=== PATIENT | male | born 1965 | race Caucasian/White ===

== ENCOUNTER 2016-08-07 16:14 | Emergency (ER) | payer MEDICAID ==
[~2016-08-07] VITALS: Ht 167.6 cm; Wt 68.0 kg
[~2016-08-07 16:14] MED LIST: ACET-2178 PO; BACL-141 PO; CALC500T6 PO; CLON1TAB PO; CRAN3875; DOCU-138 PO; GABA-290 PO; GEMF600T; HYDR-519 PO; LACT10SO32 PO; LORA-250 PO; MAGN800O PO; MULT-25 PO; SENN-27 PO; SIME80TA5 PO; TEMA15CA PO
[2016-08-07] MEDS ORDERED: SODIUM CHLORIDE 0.9% 1,000 ML IV ONE (17:17)
[2016-08-07] MEDS ORDERED: ONDANSETRON HCL 4MG/2ML VIAL IV STA (17:17)
[2016-08-07] MEDS ORDERED: MORPHINE SULFATE 4 MG/ML CPJ (NOT FOR IM USE) IV STA (17:17)
[2016-08-07 17:57] LABS: BASOPHILS % 0.4 % (0.0-2.0); EOSINOPHILS % 5.1 % (0.0-5.0); HEMATOCRIT. 47.7 % (42.0-52.0); HEMOGLOBIN. 16.4 g/dL (14.0-18.0); LYMPHOCYTES % 21.4 % (20.0-50.0); MEAN CORPUSCULAR HGB CONC 34.4 g/dL (31.0-37.0); MEAN CORPUSCULAR VOLUME 90.1 fL (80.0-94.0); MEAN PLATELET VOLUME 7.9 fl (7.4-10.4); MONOCYTES % 6.5 % (2.0-8.0); NEUTROPHILS % 66.6 % (40.0-76.0); PLATELET 281 x1000/uL (130-400); RED CELL DISTRIBUTION WIDTH 13.7 % (11.6-14.6); WHITE BLOOD COUNT 9.6 x1000/uL (4.5-11.0)
[2016-08-07] MEDS ORDERED: LEVOFLOXACIN 500MG TABLET PO ONE (18:00)
[2016-08-07 18:02] LABS: PARTIAL THROMBOPLASTIN TIME 28.5 sec (24.0-34.0); PROTHROMBIN TIME 10.2 sec
[2016-08-07 18:11] LABS: ALANINE AMINOTRANSFERASE 28 IU/L (13-61); ANION GAP 14; CALCIUM 8.8 mg/dL (8.5-10.1); CARBON DIOXIDE 27 mEq/L (21-32); CHLORIDE 98 mEq/L (98-107); INDEX HEMOLYSI 1 (1-3); INDEX ICTERIC 1 (1-4); INDEX LIPEMIC 1 (1-3); LIPASE 197 IU/L (73-393); UREA NITROGEN BLOOD 13 mg/dL (7-21); eGFR > 60 mL/min (>60)
[2016-08-07 19:31] LABS: CLARITY URINE CLOUDY (CLEAR); COLOR URINE YELLOW (YELLOW); GLUCOSE URINE NEGATIVE (NEGATIVE); KETONES URINE NEGATIVE (NEGATIVE); LEUKOCYTE ESTERASE URINE 3+ (NEGATIVE); NITRITE URINE POSITIVE (NEGATIVE); OCCULT BLOOD URINE TRACE (NEGATIVE); PROTEIN URINE NEGATIVE (NEGATIVE); SPECIFIC GRAVITY URINE 1.007 (1.005-1.030)
[2016-08-07 19:47] LABS: BACTERIA URINE 2+; RBC URINE 0-2 /hpf (0-2); SQUAMOUS EPITHELIAL CELL URINE FEW /lpf (RARE/1+); WBC URINE 25-50 /hpf (0-2)
[2016-08-07] MEDS ORDERED: HYDROCODONE/ACETAMINOPHEN 5/325MG TABLET PO ONE (22:45)
[2016-08-08 00:28] VITALS: BP 136/85
== END 2016-08-08 00:50 | disposition home or self-care (01) ==
LOC: ER 16:15
DX: N39.0 Urinary tract infection, site not specified (principal); E87.1 Hypo-osmolality and hyponatremia; R10.9 Unspecified abdominal pain; I10 Essential (primary) hypertension; K08.9 Disorder of teeth and supporting structures, unspecified; G82.20 Paraplegia, unspecified; F11.10 Opioid abuse, uncomplicated; Z88.0 Allergy status to penicillin; Z88.8 Allergy status to other drugs, medicaments and biological substances; F17.210 Nicotine dependence, cigarettes, uncomplicated
CPT/HCPCS: 36415; 51702; 74000; 80053; 81001; 83690; 85025; 85610; 85730; 87040; 87077; 87086; 87186; 96361; 96374; 96375; 99285; J2270; J2405; J7030; Z7610

== ENCOUNTER 2017-04-25 17:24 | Emergency (ER) | payer MEDICAID ==
[~2017-04-25] VITALS: Ht 167.6 cm; Wt 66.0 kg
[2017-04-26 03:08] LABS: BASOPHILS % 1.2 % (0.0-2.0); EOSINOPHILS % 10.4 % (0.0-5.0); HEMATOCRIT. 43.2 % (42.0-52.0); HEMOGLOBIN. 14.9 g/dL (14.0-18.0); LYMPHOCYTES % 41.5 % (20.0-50.0); MEAN CORPUSCULAR HEMOGLOBIN 31.2 pg (28.0-32.0); MEAN CORPUSCULAR VOLUME 90.7 fL (80.0-94.0); MEAN PLATELET VOLUME 7.8 fl (7.4-10.4); MONOCYTES % 10.5 % (2.0-8.0); NEUTROPHILS % 36.4 % (40.0-76.0); PLATELET 214 x1000/uL (130-400); RED BLOOD CELL COUNT 4.77 mill/uL (4.7-6.1); RED CELL DISTRIBUTION WIDTH 13.6 % (11.6-14.6)
[2017-04-26 03:20] LABS: CARBON DIOXIDE 26 mEq/L (21-32); CHLORIDE 105 mEq/L (98-107); ETHANOL BLOOD < 10 mg/dL
[2017-04-26 03:26] LABS: CLARITY URINE CLEAR (CLEAR); COLOR URINE YELLOW (YELLOW); KETONES URINE NEGATIVE (NEGATIVE); LEUKOCYTE ESTERASE URINE 2+ (NEGATIVE); NITRITE URINE NEGATIVE (NEGATIVE); OCCULT BLOOD URINE TRACE (NEGATIVE); PROTEIN URINE TRACE (NEGATIVE); SPECIFIC GRAVITY URINE 1.023 (1.005-1.030)
[2017-04-26 04:13] LABS: *AMPHETAMINES SCREEN URINE PRESUMTIVE POSITIVE (NEGATIVE); *BARBITURATES SCREEN URINE NEGATIVE (NEGATIVE); *BENZODIAZEPINES SCREEN URINE NEGATIVE (NEGATIVE); *COCAINE SCREEN URINE NEGATIVE (NEGATIVE); CANNABINOID URINE SCREEN NEGATIVE (NEGATIVE); METHADONE URINE SCREEN NEGATIVE (NEGATIVE); OPIATES URINE SCREEN PRESUMTIVE POSITIVE (NEGATIVE); PHENCYCLIDINE URINE SCREEN NEGATIVE (NEGATIVE)
[2017-04-27] MEDS ORDERED: SULFAMETHOXAZOLE/TRIMETHOPRIM 400/80MG TAB PO ONE (05:45)
[2017-04-27] MEDS: SULFAMETHOXAZOLE/TRIMETHOPRIM 800/160MG TABLET PO ONE (06:55)
[2017-04-27] MEDS: ACETAMINOPHEN WITH CODEINE 300/30MG TABLET PO ONE (06:55)
[2017-04-27 12:25] VITALS: BP 106/62
== END 2017-04-27 12:50 | disposition home or self-care (01) ==
LOC: ER 17:24
DX: J06.9 Acute upper respiratory infection, unspecified (principal); N39.0 Urinary tract infection, site not specified; F15.10 Other stimulant abuse, uncomplicated; F11.90 Opioid use, unspecified, uncomplicated; K21.9 Gastro-esophageal reflux disease without esophagitis; I10 Essential (primary) hypertension; Z59.0 Homelessness; Z88.0 Allergy status to penicillin; Z88.1 Allergy status to other antibiotic agents
CPT/HCPCS: 36415; 71045; 80053; 80305; 80307; 80329; 81001; 85025; 99285; G0482

== ENCOUNTER 2017-05-11 10:30 | Emergency (ER) | payer MEDICAID ==
[~2017-05-11] VITALS: Ht 172.7 cm; Wt 81.0 kg
[2017-05-11] MEDS ORDERED: BACITRACIN ZINC OINT UDPKT TOP ONE (11:15)
[2017-05-11] MEDS ORDERED: KETOROLAC 30MG/ML VIAL IM ONE (11:15)
[2017-05-11 16:45] VITALS: BP 99/75
== END 2017-05-11 17:00 | disposition home or self-care (01) ==
LOC: ER 10:43
DX: T83.031A Leakage of indwelling urethral catheter, initial encounter (principal); L89.319 Pressure ulcer of right buttock, unspecified stage; Z88.0 Allergy status to penicillin; Z88.1 Allergy status to other antibiotic agents
CPT/HCPCS: 51702; 96372; 99284; J1885

== ENCOUNTER 2017-05-12 05:25 | Emergency (ER) | payer MEDICAID ==
[~2017-05-12] VITALS: Ht 167.6 cm; Wt 59.0 kg
[2017-05-12] MEDS ORDERED: MAGNESIUM/ALUMINUM HYDROXIDE/SIMETHICONE 30ML UDC PO ONE (06:45)
[2017-05-12] MEDS ORDERED: HYDROCODONE/ACETAMINOPHEN 5/325MG TABLET PO PRN (06:45)
[2017-05-12 12:00] VITALS: BP 125/74
== END 2017-05-12 13:27 | disposition home or self-care (01) ==
LOC: ER 05:25
DX: N39.0 Urinary tract infection, site not specified (principal); G82.20 Paraplegia, unspecified; F41.9 Anxiety disorder, unspecified; F17.200 Nicotine dependence, unspecified, uncomplicated; Z88.0 Allergy status to penicillin
CPT/HCPCS: 99283; Z7610

== ENCOUNTER 2017-07-13 19:36 | Emergency (ER) | payer MEDICAID ==
[~2017-07-13] VITALS: Ht 167.6 cm; Wt 69.0 kg
[2017-07-13 23:18] LABS: BASOPHILS % 0.6 % (0.0-2.0); HEMATOCRIT. 50.8 % (42.0-52.0); HEMOGLOBIN. 17.8 g/dL (14.0-18.0); LYMPHOCYTES % 34.9 % (20.0-50.0); MEAN CORPUSCULAR HEMOGLOBIN 31.4 pg (28.0-32.0); MEAN CORPUSCULAR VOLUME 89.5 fL (80.0-94.0); MEAN PLATELET VOLUME 6.9 fl (7.4-10.4); MONOCYTES % 10.4 % (2.0-8.0); NEUTROPHILS % 47.1 % (40.0-76.0); PLATELET 326 x1000/uL (130-400); RED BLOOD CELL COUNT 5.67 mill/uL (4.7-6.1); RED CELL DISTRIBUTION WIDTH 14.1 % (11.6-14.6)
[2017-07-13 23:23] LABS: CHLORIDE 91 mEq/L (98-107)
[2017-07-13 23:27] LABS: ETHANOL BLOOD < 10 mg/dL
[2017-07-14 06:32] LABS: CLARITY URINE CLEAR (CLEAR); COLOR URINE YELLOW (YELLOW); KETONES URINE NEGATIVE (NEGATIVE); LEUKOCYTE ESTERASE URINE TRACE (NEGATIVE); NITRITE URINE NEGATIVE (NEGATIVE); OCCULT BLOOD URINE 1+ (NEGATIVE); PROTEIN URINE NEGATIVE (NEGATIVE); SPECIFIC GRAVITY URINE 1.015 (1.005-1.030); UROBILINOGEN URINE 0.2 E.U./dL (0.2-1.0)
[2017-07-14 06:44] LABS: *AMPHETAMINES SCREEN URINE PRESUMTIVE POSITIVE (NEGATIVE); *BARBITURATES SCREEN URINE NEGATIVE (NEGATIVE); *BENZODIAZEPINES SCREEN URINE NEGATIVE (NEGATIVE); *COCAINE SCREEN URINE NEGATIVE (NEGATIVE); METHADONE URINE SCREEN NEGATIVE (NEGATIVE)
[2017-07-14 06:45] LABS: CANNABINOID URINE SCREEN NEGATIVE (NEGATIVE); OPIATES URINE SCREEN PRESUMTIVE POSITIVE (NEGATIVE); PHENCYCLIDINE URINE SCREEN NEGATIVE (NEGATIVE)
[2017-07-14 08:19] LABS: CHLORIDE 96 mEq/L (98-107)
[2017-07-14] MEDS ORDERED: SODIUM CHLORIDE 0.9% 1,000 ML IV ONE (09:45)
[2017-07-14] MEDS ORDERED: CEFTRIAXONE 1 G PREMIX 50 ML IV ONE (11:00)
[2017-07-14 19:16] VITALS: BP 118/75
== END 2017-07-14 19:33 | disposition home or self-care (01) ==
LOC: ER 21:40
DX: E86.0 Dehydration (principal); E87.1 Hypo-osmolality and hyponatremia; E87.8 Other disorders of electrolyte and fluid balance, not elsewhere classified; F17.200 Nicotine dependence, unspecified, uncomplicated; F14.10 Cocaine abuse, uncomplicated; F15.10 Other stimulant abuse, uncomplicated; Z88.0 Allergy status to penicillin; Z79.899 Other long term (current) drug therapy
CPT/HCPCS: 36415; 71045; 80048; 80053; 80305; 81003; 83930; 85025; 96361; 96365; 99285; G0482; J0696; J7030; Z7610

== ENCOUNTER 2017-07-25 02:12 | Emergency (ER) | payer MEDICAID ==
[~2017-07-25] VITALS: Ht 167.6 cm; Wt 72.0 kg
[2017-07-25] MEDS ORDERED: IBUPROFEN 400MG TABLET PO ONE (04:15)
[2017-07-25] MEDS ORDERED: OLANZAPINE 10 MG/VIAL IM STA (04:39)
[2017-07-25] MEDS ORDERED: DIPHENHYDRAMINE 50MG/ML VIAL IM STA (04:39)
[2017-07-25] MEDS ORDERED: HALOPERIDOL LACTATE 5MG/ML VIAL IM STA (04:39)
[2017-07-25] MEDS ORDERED: LORAZEPAM 2MG/ML CPJ IM ONE (04:45)
[2017-07-25] MEDS ORDERED: OLANZAPINE 10 MG/VIAL IM NR (05:00)
[2017-07-25] MEDS ORDERED: IBUPROFEN 400MG TABLET PO NR (05:00)
[2017-07-25] MEDS ORDERED: LORAZEPAM 2MG/ML CPJ IM NR (05:00)
[2017-07-25] MEDS ORDERED: HALOPERIDOL LACTATE 5MG/ML VIAL IM NR (05:00)
[2017-07-25] MEDS ORDERED: DIPHENHYDRAMINE 50MG/ML VIAL IM NR (05:00)
[2017-07-25 05:01] LABS: BASOPHILS % 0.5 % (0.0-2.0); HEMATOCRIT. 47.7 % (42.0-52.0); HEMOGLOBIN. 16.3 g/dL (14.0-18.0); LYMPHOCYTES % 43.9 % (20.0-50.0); MEAN CORPUSCULAR HEMOGLOBIN 30.8 pg (28.0-32.0); MEAN CORPUSCULAR VOLUME 89.9 fL (80.0-94.0); MEAN PLATELET VOLUME 7.5 fl (7.4-10.4); MONOCYTES % 7.3 % (2.0-8.0); NEUTROPHILS % 45.3 % (40.0-76.0); PLATELET 262 x1000/uL (130-400); RED CELL DISTRIBUTION WIDTH 14.1 % (11.6-14.6)
[2017-07-25 05:03] LABS: CHLORIDE 102 mEq/L (98-107)
[2017-07-25 05:07] LABS: ETHANOL BLOOD 139 mg/dL
[2017-07-26] MEDS ORDERED: ACETAMINOPHEN 325MG TABLET PO ONE
[2017-07-26 10:26] LABS: CLARITY URINE CLEAR (CLEAR); COLOR URINE YELLOW (YELLOW); KETONES URINE NEGATIVE (NEGATIVE); LEUKOCYTE ESTERASE URINE 3+ (NEGATIVE); NITRITE URINE NEGATIVE (NEGATIVE); OCCULT BLOOD URINE NEGATIVE (NEGATIVE); PH URINE 6.5 (4.5-8.0); PROTEIN URINE NEGATIVE (NEGATIVE); SPECIFIC GRAVITY URINE 1.018 (1.005-1.030); UROBILINOGEN URINE 0.2 E.U./dL (0.2-1.0)
[2017-07-26 10:38] LABS: CANNABINOID URINE SCREEN PRESUMTIVE POSITIVE (NEGATIVE); PHENCYCLIDINE URINE SCREEN NEGATIVE (NEGATIVE)
[2017-07-26 10:39] LABS: *AMPHETAMINES SCREEN URINE NEGATIVE (NEGATIVE); *BARBITURATES SCREEN URINE NEGATIVE (NEGATIVE); *BENZODIAZEPINES SCREEN URINE NEGATIVE (NEGATIVE); *COCAINE SCREEN URINE PRESUMTIVE POSITIVE (NEGATIVE); METHADONE URINE SCREEN NEGATIVE (NEGATIVE); OPIATES URINE SCREEN NEGATIVE (NEGATIVE)
[2017-07-26] MEDS ORDERED: CEFTRIAXONE 1 G PREMIX 50 ML IV ONE (12:00)
[2017-07-26 13:00] VITALS: BP 115/79
== END 2017-07-26 13:35 | disposition home or self-care (01) ==
LOC: ER 02:12
DX: F10.10 Alcohol abuse, uncomplicated (principal); F91.8 Other conduct disorders; M79.1 Myalgia; F17.200 Nicotine dependence, unspecified, uncomplicated; F15.10 Other stimulant abuse, uncomplicated; R53.1 Weakness; Z88.0 Allergy status to penicillin; Z88.1 Allergy status to other antibiotic agents; Y90.6 Blood alcohol level of 120-199 mg/100 ml
CPT/HCPCS: 36415; 80053; 80305; 81003; 85025; 87077; 87086; 87186; 96365; 96372; 99284; G0482; J0696; J1630; J2060; J3490

== ENCOUNTER 2017-08-10 01:10 | Emergency (ER) | payer MEDICAID ==
[~2017-08-10] VITALS: Ht 167.6 cm; Wt 73.0 kg
[2017-08-10 01:36] VITALS: BP_SYST 94
== END 2017-08-10 01:26 | disposition left against medical advice (07) ==
LOC: ER 01:10
DX: G47.8 Other sleep disorders (principal); Z53.21 Procedure and treatment not carried out due to patient leaving prior to being seen by health care provider

== ENCOUNTER 2025-03-01 01:43 | Inpatient (IN) | payer MEDICAID ==
[~2025-03-01] VITALS: Ht 152.4 cm; Wt 54.4 kg
[~2025-03-01 01:43] MED LIST changes: -ACET-2178 PO; -CLON1TAB PO; +CLON1TAB2 PO; +LIP40 MT; +MIRT-89 PO; +MUPI22OI2 TOP; +RISP1 PO; +SULF1TAB48 MT; +TOPUD PO
[2025-03-01 01:50] VITALS: O2SAT 98
[2025-03-01] MEDS: LORAZEPAM 2MG/ML UD SYRINGE IM NR (02:13)
[2025-03-01 03:34] LABS: BASOPHILS % 0.5 % (0.0-2.0); EOSINOPHILS % 2.1 % (0.0-5.0); HEMATOCRIT. 28.8 % (42.0-52.0); HEMOGLOBIN. 9.1 g/dL (14.0-18.0); LYMPHOCYTES % 12.5 % (20.0-50.0); MEAN PLATELET VOLUME 6.4 fl (7.4-10.4); MONOCYTES % 10.2 % (2.0-8.0); NEUTROPHILS % 74.7 % (40.0-76.0); PLATELET 776 x1000/uL (130-400); RED BLOOD CELL COUNT 4.47 mill/uL (4.7-6.1); RED CELL DISTRIBUTION WIDTH 21.0 % (11.6-14.6)
[2025-03-01 03:48] LABS: CREATININE 0.5 mg/dL (0.6-1.3); ETHANOL BLOOD < 10 mg/dL (<10); UREA NITROGEN BLOOD 19 mg/dL (9-23)
[2025-03-01 03:49] LABS: PROTEIN TOTAL 6.9 g/dL (6.0-8.3)
[2025-03-01 03:50] LABS: ASPARTATE AMINOTRANSFERASE 19 IU/L (<34); BILIRUBIN DIRECT < 0.1 mg/dL (<=3.0); BILIRUBIN TOTAL 0.3 mg/dL (0.1-1.0)
[2025-03-01] MEDS ORDERED: DOCUSATE SODIUM 100MG CAPSULE PO PRN ×2 (04:30→08:15)
[2025-03-01] MEDS ORDERED: ONDANSETRON HCL 4MG/2ML INJ IV PRN ×2 (04:30→08:15)
[2025-03-01] MEDS ORDERED: IPRATROPIUM/ALBUTEROL 0.5-3(2.5)MG/3ML NEB HHN PRN ×2 (04:30→08:15)
[2025-03-01] MEDS ORDERED: GUAIFENESIN 200MG/10ML SUGAR FREE UDC PO PRN (04:30)
[2025-03-01] MEDS ORDERED: ACETAMINOPHEN 325MG TABLET PO PRN ×3 (04:30→08:15)
[2025-03-01] MEDS: SODIUM CHLORIDE 0.9% 1,000 ML IV ONE (04:35)
[2025-03-01 04:57] LABS: CLARITY URINE TURBID (CLEAR); COLOR URINE DARK YELLOW (YELLOW); GLUCOSE URINE NEGATIVE (NEGATIVE); KETONES URINE TRACE (NEGATIVE); LEUKOCYTE ESTERASE URINE 3+ (NEGATIVE); NITRITE URINE POSITIVE (NEGATIVE); OCCULT BLOOD URINE 2+ (NEGATIVE); PH URINE 7.0 (4.5-8.0); PROTEIN URINE 2+ (NEGATIVE); SPECIFIC GRAVITY URINE 1.030 (1.005-1.030); UROBILINOGEN URINE 1.0 E.U./dL (0.2-1.0)
[2025-03-01 05:12] LABS: *AMPHETAMINES SCREEN URINE PRESUMPTIVE POSITIVE (NEGATIVE); *BARBITURATES SCREEN URINE NEGATIVE (NEGATIVE); *BENZODIAZEPINES SCREEN URINE NEGATIVE (NEGATIVE); *COCAINE SCREEN URINE NEGATIVE (NEGATIVE); CANNABINOID URINE SCREEN NEGATIVE (NEGATIVE); METHADONE URINE SCREEN NEGATIVE (NEGATIVE); OPIATES URINE SCREEN PRESUMPTIVE POSITIVE (NEGATIVE); PHENCYCLIDINE URINE SCREEN NEGATIVE (NEGATIVE)
[2025-03-01 05:13] LABS: ECSTASY MDMA SCREEN URINE CONF.TEST INDICATED (NEGATIVE)
[2025-03-01 06:13] VITALS: BP 120/54; PULSE 93; RESP 20; TEMP 36.8; O2SAT 96
[2025-03-01 06:20] LABS: SQUAMOUS EPITHELIAL CELL URINE 1+ /lpf (RARE/1+); WBC URINE TNTC /hpf (0-2)
[2025-03-01 06:21] LABS: BACTERIA URINE 4+; RBC URINE 0-2 /hpf (0-2)
[2025-03-01 07:48] VITALS: BP 122/61; PULSE 81; RESP 20; TEMP 36.4736
[2025-03-01 08:00] VITALS: BP 114/68; PULSE 88; RESP 20; TEMP 37.2; O2SAT 98
[2025-03-01] MEDS ORDERED: CLONIDINE 0.1MG TABLET PO PRN (08:15)
[2025-03-01] MEDS: PANTOPRAZOLE SODIUM 40 MG/VIAL IV SCH (09:06)
[2025-03-01] MEDS: ENOXAPARIN 40MG/0.4ML SYR SUBCUT SCH (09:06)
[2025-03-01] MEDS: FERROUS SULFATE 325MG TABLET PO SCH (09:07)
[2025-03-01] MEDS: SODIUM CHLORIDE 0.9% 1,000 ML IV SCH (09:07)
[2025-03-01] MEDS: FOLIC ACID 1MG TABLET PO SCH (09:07)
[2025-03-01] MEDS: THIAMINE HCL 100MG TABLET PO SCH (09:07)
[2025-03-01] MEDS: CEFTRIAXONE 1GM/50ML 50 ML IV SCH (11:55)
[2025-03-01 12:00] VITALS: BP 112/64; PULSE 66; RESP 18; TEMP 36.6; O2SAT 97
[2025-03-01] MEDS: GABAPENTIN 100MG CAPSULE PO SCH (13:20)
[2025-03-01] MEDS: SIMETHICONE 80MG TABLET CHEW PO SCH (15:54)
[2025-03-01] MEDS: MULTIVITAMINS,THER W-MINERALS TABLET PO SCH (15:54)
[2025-03-01] MEDS: BACLOFEN 10MG TABLET PO SCH (15:54)
[2025-03-01] MEDS: HYDROCODONE/ACETAMINOPHEN 5/325MG TABLET PO SCH ×2 (15:59→21:46)
[2025-03-01 16:00] VITALS: BP 119/67; PULSE 94; RESP 20; TEMP 36.7; O2SAT 100
[2025-03-01] MEDS: CALCIUM CARBONATE/VITAMIN D3 500MG TABLET PO SCH (18:30)
[2025-03-01] MEDS: ATORVASTATIN CALCIUM 40MG TABLET PO SCH (21:00)
[2025-03-01] MEDS: RISPERIDONE 1MG TABLET PO SCH (21:00)
[2025-03-02] MEDS ORDERED: HYDROMORPHONE HCL/PF 2MG/ML INJ IV NR (01:15)
[2025-03-02] MEDS ORDERED: SODIUM HYPOCHLORITE 0.125% 473ML SOLUTION TOP SCH (13:00)
== END 2025-03-02 11:30 | disposition left against medical advice (07) | DRG 380 ==
LOC: ER 02:32 → 8WST 03:46 → EDBEDREQTM 04:13 → EDBEDREQ 04:13 → ENRESERV 05:33 → 6EST 03-02 00:29
PROVIDERS: ADMIT Internal Medicine; ATTEND Internal Medicine
DX: L89.154 Pressure ulcer of sacral region, stage 4 (principal); L89.224 Pressure ulcer of left hip, stage 4; L89.613 Pressure ulcer of right heel, stage 3; L89.623 Pressure ulcer of left heel, stage 3; N39.0 Urinary tract infection, site not specified; G82.20 Paraplegia, unspecified; F15.10 Other stimulant abuse, uncomplicated; F10.129 Alcohol abuse with intoxication, unspecified; M62.82 Rhabdomyolysis; E78.1 Pure hyperglyceridemia; F17.210 Nicotine dependence, cigarettes, uncomplicated; F41.9 Anxiety disorder, unspecified; Z53.29 Procedure and treatment not carried out because of patient's decision for other reasons; K59.00 Constipation, unspecified; F19.10 Other psychoactive substance abuse, uncomplicated; Z59.00 Homelessness unspecified; Z99.3 Dependence on wheelchair; Z76.5 Malingerer [conscious simulation]; Z86.73 Personal history of transient ischemic attack (TIA), and cerebral infarction without residual deficits; Z88.0 Allergy status to penicillin; Z88.1 Allergy status to other antibiotic agents; Z91.199 Patient's noncompliance with other medical treatment and regimen due to unspecified reason; Z79.899 Other long term (current) drug therapy
CPT/HCPCS: 36415; 80048; 80076; 80305; 80320; 81003; 82140; 82550; 83735; 85025; 87077; 87186; 96372; 99285; A4606; J0696; J1650; J2060; J2470; J7030; G0480